=== PATIENT | male | born 1955 | race Caucasian/White ===

== ENCOUNTER 2017-04-14 16:04 | Emergency (ER) | payer BC ==
[~2017-04-14] VITALS: Ht 175.3 cm; Wt 104.3 kg
[2017-04-14 16:09] VITALS: BP_SYST 138
--- NOTE | 2017-04-14 16:14 | NUR ---
Pt placed to ER waiting room in stable condition.
[2017-04-14 16:36] LABS: BASOPHILS # (AUTO) 0.1 K/uL (0.0-0.2); BASOPHILS % (AUTO) 1.1 % (0.0-2.0); EOSINOPHILS # (AUTO) 0.2 K/uL (0.0-0.4); HEMATOCRIT 48.6 % (36-54); HEMOGLOBIN 15.2 g/dL (14.0-18.0); LYMPHOCYTES # (AUTO) 2.4 K/uL (1.0-5.5); LYMPHOCYTES % (AUTO) 31.4 % (20.5-51.5); MEAN CORPUSCULAR HEMOGLOBIN 25 pg (27-31); MEAN CORPUSCULAR HGB CONC 31 % (32-36); MEAN CORPUSCULAR VOLUME 81 fL (79.0-98.0); MONOCYTES # (AUTO) 0.6 K/uL (0.0-1.0); MONOCYTES % (AUTO) 8.3 % (1.7-9.3); NEUTROPHILS # (AUTO) 4.4 K/uL (1.8-7.7); NEUTROPHILS % (AUTO) 56.2 % (40.0-70.0); PLATELET COUNT (AUTO) 285 K/uL (130-430); RED CELL DISTRIBUTION WIDTH 13.4 % (9.0-15.0); WHITE BLOOD COUNT (AUTO) 7.7 K/uL (4.8-10.8)
[2017-04-14 16:41] LABS: CALCIUM 8.7 mg/dL (8.4-11.0); CREATININE 1.07 mg/dL (0.55-1.30); POTASSIUM 4.2 mmol/L (3.5-5.1)
[2017-04-14 16:46] LABS: ALBUMIN 4.1 g/dL (3.4-4.8); TOTAL BILIRUBIN 0.3 mg/dL (0.0-1.0); TOTAL PROTEIN, SERUM 7.7 g/dL (6.4-8.3)
--- NOTE | 2017-04-14 18:15 | NUR ---
Pt placed to ER bed 08, to [facility], report given to KERI Bonilla.
--- NOTE | 2017-04-14 18:30 | NUR ---
Pt states that he was at the PCP last week and labs were drawn and results were called today, K was 7.5 and was instructed to come and make sure it was a mistake lab drawn. Pt denies pain, n/v or diarrhea. No other injuries/complaints per pt or noted
--- NOTE | 2017-04-14 18:40 | NUR ---
ER at bedside examining patient.
[2017-04-14 18:51] VITALS: BP_SYST 135
--- NOTE | 2017-04-14 18:51 | NUR ---
Patient given written and verbal discharge instructions and verbalizes understanding. ER MD discussed with patient the results and treatment provided. Patient in stable condition. ID arm band removed. No Rx given. Patient educated on pain management and to follow up with PMD. Pain Scale 0. Opportunity for questions provided and answered.
== END 2017-04-14 18:51 | disposition home or self-care (01) ==
LOC: SED 16:04
DX: E87.5 Hyperkalemia (principal)
CPT/HCPCS: 36415; 80053; 85025; 93005; 99285

== ENCOUNTER 2019-10-01 20:11 | Emergency (ER) | payer BC ==
[~2019-10-01] VITALS: Ht 172.7 cm; Wt 97.5 kg
[2019-10-01 20:15] VITALS: BP_SYST 145
--- NOTE | 2019-10-01 22:06 | NUR ---
Patient to ER bed 7 to gown for evaluation. Side rails up.
--- NOTE | 2019-10-01 22:30 | NUR ---
Pt came into Ed w/ , s/p fall. Pt states he was getting the mail and slipped and fell on his face. Laceration noted to bridge of nose. Site cleansed with NS, and pat dry with gauze. Pt tolerated well. No significant Hx noted. Pt has HX of back surgery years ago. Pt denies KO, no N/V, fever, dizziness or blurry vision noted. Will contnue to monitor.
--- NOTE | 2019-10-01 22:40 | NUR ---
Dr. Bauman at bedside examining Pt.
[2019-10-01 23:05] VITALS: BP_SYST 125
--- NOTE | 2019-10-01 23:05 | NUR ---
Patient given written and verbal discharge instructions and verbalizes understanding. ER MD discussed with patient the results and treatment provided. Patient in stable condition. ID arm band removed. Patient educated on pain management and to follow up with PMD. Pain Scale 0/10. Opportunity for questions provided and answered. Medication side effect fact sheet provided.
== END 2019-10-01 23:05 | disposition home or self-care (01) ==
LOC: SED 20:11
DX: S01.21XA Laceration without foreign body of nose, initial encounter (principal); W18.39XA Other fall on same level, initial encounter; Y93.89 Activity, other specified; Y92.89 Other specified places as the place of occurrence of the external cause; Y99.8 Other external cause status
CPT/HCPCS: 99283